=== PATIENT | female | born 1970 | race Caucasian/White ===

== ENCOUNTER 2018-08-25 08:08 | Emergency (ER) | payer SELFPAY ==
[2018-08-25 08:31] LABS: #Basophils 0.1 thou/uL (0.0-0.2); #Eosinphils 0.2 thou/uL (0.0-0.7); #Lymphocytes 1.9 thou/uL (1.20-3.40); #Monocytes 0.6 thou/uL (0.11-0.59); #Neutrophils 4.5 thou/uL (1.40-6.50); %Basophils 1.3 % (0.0-1.0); %Eosinophils 2.5 % (0.0-10.0); %Lymphocytes 26.1 % (21.0-51.0); %Monocytes 7.6 % (0.0-10.0); %Neutrophils 62.6 % (42.0-75.0); Hemoglobin 16.3 g/dL (12.0-16.0); Mean Corpuscular HGB CONC 32.3 g/dL (32.0-36.0); Mean Corpuscular Hemoglobin 30.9 pg (27.0-31.0); Mean Corpuscular Volume 95.5 fL (78.0-98.0); Mean Platelet Volume 7.8 fL (7.4-10.4); Platelet Count 364 thou/uL (130-400); RBC Distribution Width 11.2 % (11.5-14.5); Red Blood Cell (RBC) Count 5.28 mill/uL (4.20-5.40); White Blood Cell (WBC) Count 7.3 thou/uL (4.8-10.8)
[2018-08-25] MEDS ORDERED: Ondansetron PF 4 MG/2 ML Vial ONE (08:39)
[2018-08-25] MEDS ORDERED: Pantoprazole 40 MG VIAL ONE (08:39)
--- NOTE | 2018-08-25 08:50 | RAD ---
PORTABLE CHEST: DATE: 08/25/2018. PROVIDED CLINICAL HISTORY: Chest pain. FINDINGS: No comparisons. Cardiac and mediastinal silhouette is within normal limits. Lungs appear clear. No pleural fluid or pneumothorax apparent. IMPRESSION: No evidence for an acute cardiopulmonary process. POS: C
[2018-08-25 09:09] LABS: ALT (SGPT) 15 U/L (8-55); AST (SGOT) 20 U/L (5-34); Albumin 4.9 g/dL (3.5-5.0); Alkaline Phosphatase 48 U/L (40-150); Anion Gap 12 mmol/L (10-20); BUN (Urea Nitrogen) 9 mg/dL (7.0-18.7); Bilirubin, Total 0.7 mg/dL (0.2-1.2); CK (CPK) 101 U/L (29-168); Calc. Creatinine Clearance 0 mL/min (70-130); Calcium 9.9 mg/dL (7.8-10.44); Carbon Dioxide 26 mmol/L (22-29); Chloride 103 mmol/L (98-107); Estimated GFR-MDRD 73; Globulin 3.9 g/dL (2.4-3.5); Glucose 96 mg/dL (70-105); Lipase 28 U/L (8-78); Potassium 3.4 mmol/L (3.5-5.1); Protein, Total 8.8 g/dL (6.0-8.3); Sodium 138 mmol/L (136-145)
[2018-08-25 09:13] LABS: Troponin I Less than 0.010 ng/mL (< 0.028)
== END 2018-08-25 09:28 | disposition home or self-care (01) ==
LOC: ERS 08:08
DX: R10.12 Left upper quadrant pain (principal); R11.0 Nausea; Z79.891 Long term (current) use of opiate analgesic
CPT/HCPCS: 71045; 80053; 82550; 82553; 83690; 84484; 85025; 93005; 96361; 96374; 96375; C9113; J2405

== ENCOUNTER 2019-01-08 13:24 | Emergency (ER) | payer SELFPAY ==
[2019-01-08] MEDS ORDERED: Ketorolac Tromethamine 30 MG/ML VIAL ONE (13:55)
[2019-01-08 13:57] LABS: #Lymphocytes 0.7 thou/uL (1.20-3.40); #Monocytes 0.5 thou/uL (0.11-0.59); #Neutrophils 9.3 thou/uL (1.40-6.50); %Basophils 0.3 % (0.0-1.0); %Eosinophils 0.4 % (0.0-10.0); %Monocytes 4.5 % (0.0-10.0); %Neutrophils 87.8 % (42.0-75.0); Mean Corpuscular HGB CONC 33.7 g/dL (32.0-36.0); Mean Corpuscular Hemoglobin 31.3 pg (27.0-31.0); Mean Corpuscular Volume 92.8 fL (78.0-98.0); Mean Platelet Volume 8.2 fL (7.4-10.4); Platelet Count 288 thou/uL (130-400); RBC Distribution Width 11.2 % (11.5-14.5); White Blood Cell (WBC) Count 10.6 thou/uL (4.8-10.8)
[2019-01-08 14:23] LABS: ALT (SGPT) 17 U/L (8-55); AST (SGOT) 12 U/L (5-34); Alkaline Phosphatase 56 U/L (40-150); Anion Gap 12 mmol/L (10-20); BUN (Urea Nitrogen) 8 mg/dL (7.0-18.7); Bilirubin, Total 0.4 mg/dL (0.2-1.2); Calc. Creatinine Clearance 0 mL/min (70-130); Carbon Dioxide 27 mmol/L (22-29); Chloride 101 mmol/L (98-107); Estimated GFR-MDRD 82; Globulin 3.6 g/dL (2.4-3.5); Glucose 129 mg/dL (70-105); Potassium 3.7 mmol/L (3.5-5.1); Protein, Total 7.6 g/dL (6.0-8.3); Sodium 136 mmol/L (136-145)
--- NOTE | 2019-01-08 14:23 | RAD ---
CHEST 1 VIEW: Date: 01/08/19 HISTORY: Back pain. Fever. FINDINGS: Heart size and mediastinum are within normal limits. Lungs are clear of infiltrates. No significant b joseph findings. IMPRESSION: No active intrathoracic disease. POS: [facility]
--- NOTE | 2019-01-08 15:09 | CT ---
CT ABDOMEN AND PELVIS PERFORMED WITH CONTRAST ENHANCEMENT: Date: 01/08/19 HISTORY: Abdominal pain, back pain, fever, and diarrhea. COMPARISON: 01/04/11 study. FINDINGS: Bilateral breast augmentation is noted. The lung bases are clear. The liver, spleen, and pancreas regions are unremarkable. There is incidental note of a tiny cyst inv olving the right lobe of the liver. Gallbladder is slightly distended. Right and left adrenal glands, and right and left kidneys are normal in appearance. There is no signi ficant periaortic or mesenteric lymphadenopathy. Colon is not distended. There is some questionable s light wall thickening to the right colon. This may just be related to contraction. There is some very minimal pericolonic fat stranding on the right. The appendix is normal. CT of pelvis was performed with contrast enhancement. Colon is not distended. There is some fluid pre sent in the rectosigmoid region. Again, there is some questionable slight wall thickening, but this m ay just be on the basis of underdistention. No free fluid or other findings. IMPRESSION: Findings raising the possibility of some mild colitis-type changes as discussed above. POS: [facility]
[2019-01-08 15:29] LABS: Bilirubin Negative (Negative); Blood, Urine Large (Negative); Clarity CLOUDY (Clear); Glucose, Urine (Dipstick) 250 mg/dL (Negative); Leukocyte Negative (Negative); Nitrite Negative (Negative); Protein, Urine (Dipstick) 100 mg/dL (Neg-Trace); Specific Gravity, Urine 1.025 (1.002-1.036); Urobilinogen 0.2 mg/dL (0.2-1.0); pH, Urine 6.5 (5.0-9.0)
[2019-01-08 15:31] LABS: Bacteria/HPF 1+ HPF (None Seen); Pathc Cast-AUWi Flag 2.04 (0-2.49)
[2019-01-08] MEDS ORDERED: ISOVUE-370 76%-LOCM 1 ML ONE (15:37)
[2019-01-08 15:43] LABS: Hyaline Casts/LPF 0-3 HYALINE CAST LPF (0-3 Hyaline); Renal Epithelial None Seen HPF (0-3); Transitional Epithelial 0-3 HPF (0-3)
== END 2019-01-08 16:30 | disposition home or self-care (01) ==
LOC: ERS 13:24
DX: K52.9 Noninfective gastroenteritis and colitis, unspecified (principal); F17.210 Nicotine dependence, cigarettes, uncomplicated
CPT/HCPCS: 71045; 74177; 80053; 81003; 81015; 83605; 85025; 87040; 87086; 87804; 96360; 96361; 96374; J1885; Q9966

== ENCOUNTER 2019-05-05 13:37 | Observation (INO) | payer SELFPAY ==
[2019-05-05 14:02] LABS: #Eosinphils 0.1 thou/uL (0.0-0.7); #Monocytes 0.5 thou/uL (0.11-0.59); #Neutrophils 4.3 thou/uL (1.40-6.50); %Basophils 0.7 % (0.0-1.0); %Eosinophils 1.6 % (0.0-10.0); %Monocytes 7.1 % (0.0-10.0); %Neutrophils 61.6 % (42.0-75.0); Hemoglobin 14.9 g/dL (12.0-16.0); Mean Corpuscular HGB CONC 34.3 g/dL (32.0-36.0); Mean Corpuscular Hemoglobin 31.9 pg (27.0-31.0); Mean Corpuscular Volume 93.1 fL (78.0-98.0); Platelet Count 329 thou/uL (130-400); RBC Distribution Width 11.1 % (11.5-14.5); Red Blood Cell (RBC) Count 4.68 mill/uL (4.20-5.40)
[2019-05-05] MEDS ORDERED: Nitroglycerin 0.4 MG TAB 1 EACH ONE (14:15)
[2019-05-05 14:26] LABS: ALT (SGPT) 10 U/L (8-55); AST (SGOT) 14 U/L (5-34); Albumin 4.3 g/dL (3.5-5.0); Alkaline Phosphatase 44 U/L (40-150); Anion Gap 12 mmol/L (10-20); BUN (Urea Nitrogen) 9 mg/dL (7.0-18.7); Bilirubin, Total 0.4 mg/dL (0.2-1.2); CK (CPK) 59 U/L (29-168); Calc. Creatinine Clearance 0 mL/min (70-130); Calcium 9.8 mg/dL (7.8-10.44); Carbon Dioxide 25 mmol/L (22-29); Chloride 102 mmol/L (98-107); Estimated GFR-MDRD 84; Globulin 3.2 g/dL (2.4-3.5); Glucose 96 mg/dL (70-105); Potassium 3.7 mmol/L (3.5-5.1); Protein, Total 7.5 g/dL (6.0-8.3); Sodium 135 mmol/L (136-145)
--- NOTE | 2019-05-05 14:50 | RAD ---
PORTABLE CHEST 1 VIEW: Date: 05/05/19 Time: 1425 hours HISTORY: Dyspnea, high blood pressure, jaw pain. FINDINGS: Comparison made with exam of 01/08/19. The heart size is normal. The aorta is tortuous. The lungs are expanded without lobar consolidation, pneumothoraces, or pleural effusions. IMPRESSION: No radiographic evidence of acute cardiopulmonary process. POS: [facility]
[2019-05-05] MEDS ORDERED: Aspirin Chewable 81 MG TAB ONE (15:38)
[2019-05-05 17:07] VITALS: BMI 22.8
[2019-05-05] MEDS ORDERED: Nitroglycerin 0.4 MG TAB (25 Tab Bottle) PO PRN (17:30)
[2019-05-05 18:02] LABS: Troponin I Less than 0.010 ng/mL (< 0.028)
[2019-05-05 20:15] LABS: Troponin I Less than 0.010 ng/mL (< 0.028)
--- NOTE | 2019-05-06 03:28 | HP ---
CHIEF COMPLAINT: Left jaw and shoulder pain. HISTORY OF PRESENT ILLNESS: This patient is a 48-year-old female, does not have an established primary care provider. The patient states that yesterday she woke feeling generally well, but had an episode of feeling like her heart was pounding with associated shortness of breath and fatigue that lasted about 45 minutes. It spontaneously resolved and she felt normal throughout the remainder of the day. Today, she felt okay when she waken, went to work, but said she suddenly started not feeling normal, had her blood pressure checked by her nurse at work and her numbers were elevated. She experienced some pain in her left jaw, some shortness of breath, and some lightheadedness. She also had pain in the left posterior shoulder area. She described the character of the pain as "a sharp dull pain." This lasted for a few hours and then resolved, although she feels like she still has some tightness in her left jaw. She had some mild nausea today while she was brought to the hospital. She states she received nitroglycerin in the emergency department and had no effect on her. All others are causing a significant headache. The patient reports that she does walk 8-10 miles per day on her job and has no problems. She does not exercise beyond walking at work. REVIEW OF SYSTEMS: She reports intermittently poor appetite over the last 6 months and frequent muscle cramps. All other systems were reviewed, all pertinent positives and negatives noted in the history of present illness. PAST MEDICAL HISTORY: None. PAST SURGICAL HISTORY: Partial hysterectomy and breast augmentation. FAMILY HISTORY: Mother of lung cancer. She does not know about her father. SOCIAL HISTORY: The patient does not drink or use drugs. She smokes a couple of cigarettes per month. She is single. She is full code. Her daughter would be her surrogate decision maker. ALLERGIES: NONE. HOME MEDICATIONS: None. PHYSICAL EXAMINATION: VITAL SIGNS: Temperature 99, pulse 67, respirations 20, O2 saturation 97% on room air, BP 120/73. GENERAL APPEARANCE: Age-appropriate female. She is in no distress, awake, alert, oriented, pleasant, and cooperative. HEENT: PERRL. No OP lesions. NECK: Supple and symmetric with no lymphadenopathy, JVD, or carotid bruits. HEART: Regular rate and rhythm without murmurs, gallops, or rubs. LUNGS: Clear to auscultation bilaterally with good chest wall expansion and air exchange. ABDOMEN: Soft, nontender, and nondistended. Positive bowel sounds. No masses. No organomegaly. EXTREMITIES: No cyanosis, clubbing, or edema. LABORATORY DATA: White count 7.0, hemoglobin 14.9, platelets 329. Sodium 135, potassium 3.7, chloride 102, CO2 of 25, BUN 9, creatinine 0.74, glucose 96, and calcium 9.8, AST 14, ALT 10. CK 59, troponin less than 0.01. Albumin 4.3. Chest x-ray, negative. EKG showed sinus rhythm at rate of 97 beats per minute. No ST or T wave changes. IMPRESSION AND PLAN: 1. Left jaw and shoulder pain concerning for anginal equivalent. The patient will be placed on observation. She will have telemetry, serial cardiac isoenzymes, p.r.n. nitroglycerin. If negative, would anticipate stress test tomorrow to definitively rule out the underlying angina. 2. Elevated blood pressure without diagnosis of hypertension. The patient's blood pressure in the emergency room on presentation was actually elevated at 170/101, resolved promptly, normalized without aggressive intervention other than a nitroglycerin. We will continue to monitor her blood pressures. I do not anticipate that she has no significant hypertensive issues. Job ID: [id number]
[2019-05-06 12:05] VITALS: BP 110/63; TEMP 98.7
--- NOTE | 2019-05-06 14:58 | DIS ---
DATE OF ADMISSION: 05/05/2019 DATE OF DISCHARGE: 05/06/2019 DISCHARGE DIAGNOSES: 1. Left jaw and shoulder pain. 2. Transient elevation in blood pressure. 3. Possible anxiety disorder. 4. Tobacco abuse disorder. HOSPITAL COURSE: A 48-year-old female with no significant past medical history other than tobacco use, admitted due to acute onset of left jaw and shoulder pain concerning for anginal equivalent. The patient also reported an episode of self-limiting palpitation. Acute myocardial infarction was ruled out with serial troponin. The patient was further evaluated with treadmill stress test which was negative for reversible ischemia. The patient's symptoms resolved and she remained asymptomatic and was subsequently discharged to follow up with primary care provider. PHYSICAL EXAMINATION: VITAL SIGNS: Temperature 98.7, pulse 84, respiratory rate 20, SpO2 of 98 on room air, blood pressure 110/63. GENERAL: Healthy-looking, middle-aged female, in no distress. Afebrile. Anicteric. Acyanotic. HEENT: Normocephalic and atraumatic. Pupils are reacting to light. Oral mucosa is moist. CARDIOVASCULAR: Regular rhythm and rate. Normal heart sounds one and two. No murmur was appreciated. RESPIRATORY: Good air entry bilaterally with no crackle or rhonchi or use of accessory muscles. GI: Full, soft, nontender, nondistended with normal bowel sounds. EXTREMITIES: Grossly normal looking atraumatic with no edema, erythema, or cyanosis. NEUROLOGIC: Conscious, alert, oriented x3 with appropriate mental status. Cranial nerves 2 through 12 are grossly intact. The patient moves all extremities. The patient is ambulant. DISCHARGE DISPOSITION: Home. CONDITION AT DISCHARGE: Improved. DISCHARGE MEDICATION: None. The patient was advised to take Tylenol p.r.n. as needed. FOLLOWUP: The patient is to follow with PCP in 3 to 5 days. Job ID: [id number]
== END 2019-05-06 14:54 | disposition home or self-care (01) ==
LOC: ERS 13:37 → 2SW 17:00
PROVIDERS: ADMIT Internal Medicine; ATTEND Internal Medicine
DX: M25.512 Pain in left shoulder (principal); R68.84 Jaw pain; F17.210 Nicotine dependence, cigarettes, uncomplicated; R03.0 Elevated blood-pressure reading, without diagnosis of hypertension
CPT/HCPCS: 36415; 71045; 80053; 82550; 84484; 85025; 93005; 93017; G0378

== ENCOUNTER 2019-11-22 08:40 | Outpatient (CLI) | payer BC ==
--- NOTE | 2019-11-22 09:50 | RAD ---
XR Barium Swallow Esophagus HISTORY: Dysphagia COMPARISON: None. FINDINGS: Swallowing was grossly normal. There is unobstructed flow of contrast through the esophagus into the stomach. No ulcer, stricture, mass or diverticulum is seen. A small hiatal hernia is present. IMPRESSION: Small hiatal hernia.
== END 2019-11-22 08:41 | disposition home or self-care (01) ==
LOC: RAD 08:40
PROVIDERS: ATTEND Physician Assistant Medical
DX: R13.10 Dysphagia, unspecified (principal); K44.9 Diaphragmatic hernia without obstruction or gangrene
CPT/HCPCS: 74220